=== PATIENT | female | born 1995 ===

== ENCOUNTER 2020-05-29 07:40 | Outpatient (CLI) | payer OTHER, SELFPAY ==
[2020-06-01 08:18] LABS: SARS-CoV-2 RNA Undetected (Undetected); SARS-CoV-2 Specimen Source Nasopharynx
== END 2020-05-29 08:00 ==
PROVIDERS: Visit Provider Nurse Practitioner Family
DX: Z11.59 Encounter for screening for other viral diseases (principal)
CPT/HCPCS: U0003